=== PATIENT | male | born 1970 | race Asian ===

== ENCOUNTER 2024-07-06 07:25 | Day surgery (SDC) | payer OTHER, SELFPAY ==
[2024-07-05 14:10] VITALS: BMI 28.8
[2024-07-06] VITALS (9 sets, daily range): BP systolic 121–153; BP diastolic 77–104; PULSE 65–82; RESP 12–28; TEMP 36.4; O2SAT 88–99; BMI 28.4
[2024-07-06] MEDS: DiphenhydrAMINE INJ 50 MG/ML VIAL 25 MG IV (09:18)
[2024-07-06] MEDS: ONDANSETRON INJ 2 MG/ML INJ 2 ML 4 MG IV (09:20)
[2024-07-06] MEDS: MIDAZOLAM INJ 1 MG/ML VIAL 2 ML (ASD USE ONLY) 2 MG IV (09:23)
[2024-07-06] MEDS: fentaNYL CIT INJ 50 mCg/ML AMP 2ML (ASD USE ONLY) IV (09:23)
--- NOTE | 2024-07-06 09:49 | SUR.PHASEII ---
6125 Pt arrived into PACU. No distress. Evidence of sleep apnea noted. 02 placed and pt repositioned for better air exchanged. No rectal bleeding seen.
--- NOTE | 2024-07-06 10:46 | SUR.OPER ---
1005 Pt more awake and alert. Denies pain or N/V. Abd remains soft. Pt sonya po fluids. 1020 Pt assessment unchanged. No complaints. Amb with steady gait. Able to dress self. Pt and son given dc instructions. Advised to follow up with primary doctor in regards to sleep apnea evidence. Both state understanding. Pt meets dc criteria-to home.
== END 2024-07-06 10:20 | disposition home or self-care (01) ==
PROVIDERS: PCP Internal Medicine; Referring Provider Specialist; Visit Provider Specialist
PROC: 0DBE8ZX Excision of Large Intestine, Via Natural or Artificial Opening Endoscopic, Diagnostic (ICD-10-PCS; CPT 45380; principal; 2024-07-06 08:30)
DX: Z12.11 Encounter for screening for malignant neoplasm of colon (principal); K64.9 Unspecified hemorrhoids
CPT/HCPCS: 45378; J1200; J2250; J2405; J3010

== ENCOUNTER → 2024-09-20 | Outpatient (CLI) | payer OTHER, SELFPAY ==
[2024-09-20 10:46] LABS: Cardiac Risk Estimate 4.7 RATIO (4.0-6.7); Cholesterol 178 mg/dL (132-200); HDL Cholesterol 38 mg/dL (40-60); LDL Cholesterol,Calculated 108 mg/dL (0-130); Triglycerides 161 mg/dL (30-150)
== END | disposition home or self-care (01) ==
LOC: COPL 08:30
PROVIDERS: PCP Internal Medicine; Referring Provider Internal Medicine Cardiovascular Disease; Visit Provider Internal Medicine Cardiovascular Disease
DX: R06.09 Other forms of dyspnea (principal)
CPT/HCPCS: 36415; 80061